=== PATIENT | female | born 1995 | race Caucasian/White ===

== ENCOUNTER → 2017-04-15 | Outpatient (CLI) | payer BC ==
[~2017-04-15] MED LIST: AMOX1TAB42 PO; BCPILLS PO; CTP/1 PO; ESCI10TA17 PO; GADAVIST IV PRN
--- NOTE | 2017-04-15 12:31 | DIAGNOSTIC IMAGING REPORT ---
Brain MRI WITH AND WITHOUT CONTRAST HISTORY: R51 [id number] Pineal gland cyst TECHNIQUE: Multiplanar multisequence MRI of the brain was performed both before and after the intravenous administration of contrast. COMPARISON STUDY: Brain MRI 09/29/2015. FINDINGS: There are no areas of restricted diffusion to suggest acute infarction. The paranasal sinuses are clear. The mastoid air cells are clear. The ventricles and sulci are within normal limits for age. There is no mass, hematoma, midline shift. The major vascular flow-voids at the skull base are well maintained. Stable small right frontal developmental venous anomaly. Stable 9 mm pineal gland cyst. IMPRESSION: No acute intracranial abnormality. No change in the prior study. Stable 9 mm pineal gland cyst. Electronically signed by: Jluis Olson M.D. 04/15/2017 12:30 PM Dictated Date/Time: 04/15/2017 12:22 PM
== END | disposition home or self-care (01) ==
LOC: C.MRI 10:36
PROVIDERS: ATTEND Physician Assistant
DX: R51 Headache (principal); E34.8 Other specified endocrine disorders